=== PATIENT | female | born 1955 | race Caucasian/White ===

== ENCOUNTER 2016-10-16 21:56 | Emergency (ER) | payer BC ==
[~2016-10-16 21:56] MED LIST: Sodium Chloride 0.9% 1,000 ML IV ONE
[2016-10-16] MEDS ORDERED: Sodium Chloride 0.9% 1,000 ML IV ONE (22:00)
[2016-10-16] MEDS ORDERED: Midazolam 1 MG/ML 2 ML SDV ONE ×3 (22:05→22:46)
[2016-10-16] MEDS ORDERED: fentaNYL 100 MCG/2 ML SDV ONE ×3 (22:05→22:47)
== END 2016-10-16 22:30 | disposition short-term general hospital (02) ==
LOC: VM.ED 21:56
DX: S02.5XXA Fracture of tooth (traumatic), initial encounter for closed fracture (principal); S01.21XA Laceration without foreign body of nose, initial encounter; S09.90XA Unspecified injury of head, initial encounter; V80.010A Animal-rider injured by fall from or being thrown from horse in noncollision accident, initial encounter
CPT/HCPCS: 51702; 99291; J2250; J3010; J7030; 96361; 96374; 96375